=== PATIENT | male | born 1985 | race Hispanic/Latino ===

== ENCOUNTER 2018-07-17 10:01 | Emergency (ER) | payer BC ==
[2018-07-17 10:04] VITALS: BMI 25.0
[2018-07-17] MEDS ORDERED: Sodium Chloride 0.9% 1,000 ML IV STA ×2 (11:15→14:20)
--- NOTE | 2018-07-17 11:27 | ED PDOC ---
Syncope/Near Syncope/Dizziness Time Seen by Provider: 07/17/18 10:25 Chief Complaint (Nursing): Dizziness/Lightheaded Chief Complaint (Provider): Dizziness/Lightheaded History Per: Patient History/Exam Limitations: no limitations Additional Complaint(s): 33 y/o male with a history of auto immune disease presents to the ED complaining of vertigo today. Patient states he was on his way to work when he felt dizzy, nauseas, and felt like the world was spinning. Patient admits it progressively worsen when he moves his head. He reports he had a cold this weekend and took a Tylenol. Patient states he is being worked up at [facility] due to some unknown autoimmune disease (they are still working him up to figure out what type ) and is currently on Methotrexate. Patient denies headache, or any loss of consciousness. PMD: none provided Past Medical History Reviewed: Historical Data, Nursing Documentation, Vital Signs Vital Signs: Last Vital Signs Temp 97.9 F 07/17/18 10:04 Pulse 68 07/17/18 10:04 Resp 17 07/17/18 10:04 BP 135/84 07/17/18 10:04 Pulse Ox 99 07/17/18 10:04 Primary Care Provider: Bean Foy - Medical History Other PMH: Auto immune disease - Surgical History Other surgeries: Pin in arm. - Family History Family History: States: Unknown Family Hx - Social History Current smoker - smoking cessation education provided: No Alcohol: Occasional (4 times a week) Drugs: Denies - Home Medications Home Medications: Ambulatory Orders Medication Instructions Recorded Meclizine [Antivert] 12.5 mg PO Q6H PRN #5 tab 07/17/18 - Allergies Allergies/Adverse Reactions: Allergies Allergy/AdvReac Type Severity Reaction Status Date / Time No Known Allergies Allergy Verified 07/17/18 10:14 Review of Systems ROS Statement: Except As Marked, All Systems Reviewed And Found Negative Gastrointestinal: Positive for: Nausea Neurological: Positive for: Dizziness, Other ((+) vertigo.) Physical Exam - Reviewed Nursing Documentation Reviewed: Yes Vital Signs Reviewed: Yes - Physical Exam Appears: Positive for: Well, Non-toxic, No Acute Distress Head Exam: Positive for: ATRAUMATIC, NORMOCEPHALIC Skin: Positive for: Normal Color, Warm, Dry Eye Exam: Positive for: Normal appearance, EOMI, PERRL. Negative for: Nystagmus ENT: Positive for: Normal ENT Inspection Neck: Positive for: Normal, Painless ROM, Supple Cardiovascular/Chest: Positive for: Regular Rate, Rhythm. Negative for: Murmur Respiratory: Positive for: Normal Breath Sounds. Negative for: Wheezing Gastrointestinal/Abdominal: Positive for: Normal Exam, Soft. Negative for: Tenderness Back: Positive for: Normal Inspection. Negative for: L CVA Tenderness, R CVA Tenderness Extremity: Positive for: Normal ROM Neurological/Psych: Positive for: Awake, Alert, Normal Tone, Oriented (x3), Gait (stable), photo technician II-XII (movement of head reproduces dizziness). Negative for: Motor/Sensory Deficits, Facial Droop Comments: Dizziness is reproducible with movement of head. - Laboratory Results Result Diagrams: 07/17/18 11:28 07/17/18 11:28 - ECG O2 Sat by Pulse Oximetry: 99 - Critical Care Total Time (In Min): 30 Comments: multiple neuro eval and specialist consult Medical Decision Making Medical Decision Making: Time: 1115 Initial Impression: dizziness rule out electrolyte abnormality, dehydration. there is no sign of infection. neurological exam normal. Initial Plan: -EKG -CMP -CBC -Meclizine 25mg PO -Sodium chloride -Zofran 4mg 1417 Reevaluation --Labs reviewed by provider were benign and patient reports feeling slightly better but not completely better so CT Head ordered 1447 FINDINGS: HEMORRHAGE: No intracranial hemorrhage. BRAIN: There is a tiny 4 mm hyperdensity identified in the subcortical right frontal lobe near the vertex for which follow-up MRI is advised with and without gadolinium for better characterization. No additional findings appreciated throughout the supra and infratentorial brain including the brainstem. Good corticomedullary differentiation is appreciated there is no mass effect. No definite parenchymal edema or suspicious extra-axial collection. Midline brain anatomy appears normal. VENTRICLES: Unremarkable. No hydrocephalus. CALVARIUM: Unremarkable. PARANASAL SINUSES: Unremarkable as visualized. No significant inflammatory changes. MASTOID AIR CELLS: Unremarkable as visualized. No inflammatory changes. OTHER FINDINGS: None. IMPRESSION: 4 mm hyperdensity in the right frontal subcortical regions suspicious for possible tiny hemorrhage or mass with other etiologies not excluded. The remainder of the examination is unremarkable. Follow-up MRI is advised with and without contrast for added characterization. 1523 racebook writer called neurosurgery resident for consultation 1527 EKG--normal sinus rhythm, 64 beats per minute 1534 Dr. Fuentes neurosurgery reviewed the patient's images for CT scan and determined that finding is incidental and not related to or a cause of the patient's dizziness. according to dr fuentes- If the patient is clinically stable, he can be discharged and follow up as an outpt with neurologist. reevaluted pt: neurological exam normal. no focal deficits. vitals stable. pt awake and alert in no distress. 1603: Discussed results with patient at bedside and my conversation with dr tommy walters, he will follow up with outpt neurologist. pt states he feesl completely better, dizziness resolved. i explained that likely vertigo, but need ENT follow up for that as well 16:24 Patient was given a copy of the CT report for outpt follow up. pt ambulating with steady gait. --- Scribe Attestation: Documented by Geremias Chacon, acting as a scribe for Ollie Jones. Provider Scribe Attestation: All medical record entries made by the Scribe were at my direction and personally dictated by me. I have reviewed the chart and agree that the record accurately reflects my personal performance of the history, physical exam, medical decision making, and the department course for this patient. I have also personally directed, reviewed, and agree with the discharge instructions and disposition. Disposition - Clinical Impression Clinical Impression: Dizziness, Vertigo - Patient ED Disposition Is Patient to be Admitted: No Counseled Patient/Family Regarding: Studies Performed, Diagnosis, Need For Followup - Disposition Referrals: Rio Hendrix MD [Staff Provider] - Kia Wilson MD [Medical Doctor] - Disposition: Routine/Home Disposition Time: 16:03 Condition: IMPROVED Additional Instructions: follow up with your primary doctor at [facility] in 2 days as well as neurologist and ENT return to the ED with any worsening or concerning symptoms Prescriptions: Meclizine [Antivert] 12.5 mg PO Q6H PRN #5 tab PRN Reason: Dizziness Instructions: Vertigo (a Type of Dizziness) (DC) Forms: [employer]! (Stateless)
[2018-07-17 11:47] LABS: BASO # 0.1 K/uL (0.0-0.2); BASO % 0.8 % (0.0-2.0); EOS # 0.3 K/uL (0.0-0.7); EOS % 5.1 % (0.0-4.0); LYMPH % 15.7 % (20.0-40.0); MEAN CELL VOLUME 94.3 fl (80.0-94.0); MEAN CORPUSCULAR HEMOGLOBIN 31.8 pg (27.0-31.0); MEAN CORPUSCULAR HGB CONC 33.7 g/dL (33.0-37.0); MEAN PLATELET VOLUME 10.7 fl (7.2-11.7); MONO # 0.5 K/uL (0.0-0.8); MONO % 7.6 % (0.0-10.0); NEUT # 4.5 K/uL (1.8-7.0); NEUT % 70.8 % (50.0-75.0); RBC 4.73 Mil/uL (4.40-5.90); RED CELL DISTRIBUTION WIDTH 14.3 % (11.5-14.5); WHITE BLOOD COUNT 6.4 K/uL (4.8-10.8)
[2018-07-17 11:55] LABS: ALB/GLOB RATIO 1.5 (1.0-2.1); ALT/SGPT 33 U/L (21-72); AST/SGOT 24 U/L (17-59); BLOOD UREA NITROGEN 12 mg/dl (9-20); CALCIUM 10.1 mg/dL (8.4-10.2); GFR NON-AFRICAN AMERICAN > 60
--- NOTE | 2018-07-17 15:12 | CT ---
Date of service: 07/17/2018 PROCEDURE: CT HEAD WITHOUT CONTRAST. HISTORY: dizziness COMPARISON: None available. TECHNIQUE: Axial computed tomography images were obtained through the head/brain without intravenous contrast. Radiation dose: Total exam DLP = 755.3 mGy-cm. This CT exam was performed using one or more of the following dose reduction techniques: Automated exposure control, adjustment of the mA and/or kV according to patient size, and/or use of iterative reconstruction technique. FINDINGS: HEMORRHAGE: No intracranial hemorrhage. BRAIN: There is a tiny 4 mm hyperdensity identified in the subcortical right frontal lobe near the vertex for which follow-up MRI is advised with and without gadolinium for better characterization. No additional findings appreciated throughout the supra and infratentorial brain including the brainstem. Good corticomedullary differentiation is appreciated there is no mass effect. No definite parenchymal edema or suspicious extra-axial collection. Midline brain anatomy appears normal. VENTRICLES: Unremarkable. No hydrocephalus. CALVARIUM: Unremarkable. PARANASAL SINUSES: Unremarkable as visualized. No significant inflammatory changes. MASTOID AIR CELLS: Unremarkable as visualized. No inflammatory changes. OTHER FINDINGS: None. IMPRESSION: 4 mm hyperdensity in the right frontal subcortical regions suspicious for possible tiny hemorrhage or mass with other etiologies not excluded. The remainder of the examination is unremarkable. Follow-up MRI is advised with and without contrast for added characterization.
[2018-07-17 16:30] VITALS: BP 128/64; PULSE 64; RESP 14; TEMP 98.7
--- NOTE | 2018-07-17 19:23 | CARD ---
APPROVED REPORT Date of service: 07/17/2018 EKG Measurement Heart [id number] <Conclusion> Normal sinus rhythm Possible Left atrial enlargement Borderline ECG
[2018-07-18 12:18] VITALS: O2SAT 99
== END 2018-07-17 16:29 | disposition home or self-care (01) ==
LOC: H.ER 10:01
DX: R42 Dizziness and giddiness (principal)
CPT/HCPCS: 70450; 80053; 82948; 85025; 93005; 96361; 96374; 96376; 99284; J2405; J7030